=== PATIENT | female | born 2000 | race Hispanic/Latino ===

== ENCOUNTER 2022-01-07 16:03 | Observation (INO) | payer MEDICAID ==
[~2022-01-07] VITALS: Ht 167.6 cm; Wt 117.9 kg
[2022-01-07 16:06] VITALS: BP 125/80
== END 2022-01-07 17:47 | disposition home or self-care (01) ==
LOC: EDH 16:03 → LDH 16:04
PROVIDERS: ADMIT Obstetrics & Gynecology; ATTEND Obstetrics & Gynecology
DX: O62.9 Abnormality of forces of labor, unspecified (principal); Z3A.39 39 weeks gestation of pregnancy
CPT/HCPCS: G0379; G0378

== ENCOUNTER 2022-01-12 21:01 | Inpatient (IN) | payer MEDICAID ==
[~2022-01-12] VITALS: Ht 167.6 cm; Wt 100.2 kg
[2022-01-12] MEDS ORDERED: LACTATED RINGERS 1000ML 1,000 ML IV PRN (21:30)
[2022-01-12] MEDS ORDERED: PROMETHAZINE HCL 25 MG/ML 1ML AMPULE IM PRN (21:30)
[2022-01-12] MEDS ORDERED: MEPERIDINE-PF 50 MG/ML SYG IVP PRN (21:30)
[2022-01-12] MEDS ORDERED: NALOXONE HCL 0.4 MG/1 ML ML IV PRN (21:30)
[2022-01-12] MEDS ORDERED: ROPIVACAINE 0.2% 100ML VIAL 100 ML EP SCH (21:30)
[2022-01-12] MEDS ORDERED: LACTATED RINGERS 500 ML 500 ML IV PRN (21:30)
[2022-01-12] MEDS ORDERED: EPHEDRINE SULFATE 50 MG/ML AMPULE IVP PRN (21:30)
[2022-01-12 21:54] LABS: APPEARANCE,URINE CLEAR (CLEAR); BILIRUBIN,URINE NEGATIVE (NEGATIVE); COLOR,URINE YELLOW (YELLOW); GLUCOSE, URINE (UA) NEGATIVE (NEGATIVE); KETONES,URINE NEGATIVE (NEGATIVE); LEUKOCYTE ESTERASE ,URINE SMALL (NEGATIVE); NITRATE,URINE NEGATIVE (NEGATIVE); OCCULT BLOOD,URINE NEGATIVE (NEGATIVE); PROTEIN,URINE NEGATIVE (NEGATIVE); UROBILINOGEN,URINE 0.2 mg/dL (0.2-1.0)
[2022-01-12 22:00] LABS: BACTERIA,URINE Few /HPF (None Seen); RBC,URINE 0-1 /HPF (0-1); SQUAMOUS EPITHELIAL CELL,UR Few /HPF (0-2)
[2022-01-12 22:01] LABS: AMPHET/METH SCREEN,URINE NEGATIVE (NEGATIVE); BARBITURATE SCREEN, URINE NEGATIVE (NEGATIVE); BENZODIAZEPINES SCREEN,URINE NEGATIVE (NEGATIVE); CANNABINOID SCREEN,URINE NEGATIVE (NEGATIVE); COCAINE SCREEN,URINE NEGATIVE (NEGATIVE); PHENCYCLIDINE SCREEN,URINE NEGATIVE (NEGATIVE)
[2022-01-12 22:12] LABS: HEMATOCRIT 31.9 % (36-48); MEAN CORPUSCULAR HEMOGLOBIN 28.5 pg (27.0-33.0); MEAN CORPUSCULAR HGB CONC 32.9 g/dL (32.0-36.0); MEAN CORPUSCULAR VOLUME 86.4 fL (80-100); RED BLOOD CELL COUNT(AUTO) 3.69 MIL/uL (4.00-5.50); WHITE BLOOD COUNT (AUTO) 12.8 K/uL (4.8-10.8)
[2022-01-12 22:53] VITALS: BP 121/73
[2022-01-13] MEDS: OXYTOCIN-LR 20 UNITS/1000 ML 1,000 ML IV SCH ×2 (04:32→19:06)
[2022-01-13 08:40] LABS: RAPID PLASMA REAGIN NONREACTIVE (NONREACTIVE)
[2022-01-13] MEDS ORDERED: ACETAMINOPHEN 325 MG TAB PO PRN (18:30)
[2022-01-13] MEDS ORDERED: MEASLES/MUMPS/RUBELLA VACCINE, LIVE 0.5 ML/VIAL SQ PRN (18:30)
[2022-01-13] MEDS ORDERED: LANOLIN 30GM OINTMENT TP PRN (18:30)
[2022-01-13] MEDS ORDERED: WITCH HAZEL 1 PAD TP PRN (18:30)
[2022-01-13] MEDS ORDERED: BENZOCAINE/LANOLIN/ALOE VERA 60 ML AEROSOL TP PRN (18:30)
[2022-01-13] MEDS ORDERED: DIPH,PERTUSS(ACELL),TET VAC/PF 0.5 ML VIAL IM PRN (18:30)
[2022-01-13] MEDS: IBUPROFEN 600 MG TABLET PO PRN (20:21)
[2022-01-13 20:37] VITALS: BP 130/73
[2022-01-13] MEDS: DOCUSATE SODIUM 100 MG CAP PO SCH (20:57)
[2022-01-13 23:33] VITALS: BP 119/67
[2022-01-14 03:20] VITALS: BP 118/56
[2022-01-14] MEDS: IBUPROFEN 600 MG TABLET PO PRN (04:25)
[2022-01-14 06:42] LABS: HEMATOCRIT 29.9 % (36-48); MEAN CORPUSCULAR HEMOGLOBIN 28.7 pg (27.0-33.0); MEAN CORPUSCULAR HGB CONC 33.4 g/dL (32.0-36.0); MEAN CORPUSCULAR VOLUME 85.9 fL (80-100); RED BLOOD CELL COUNT(AUTO) 3.48 MIL/uL (4.00-5.50); RED CELL DISTRIBUTION WIDTH 14.3 % (11.0-15.5); WHITE BLOOD COUNT (AUTO) 20.6 K/uL (4.8-10.8)
[2022-01-14 08:10] VITALS: BP 120/68
[2022-01-14] MEDS: DOCUSATE SODIUM 100 MG CAP PO SCH (08:53)
[2022-01-14 12:00] VITALS: BP 117/73
[2022-01-14] MEDS ORDERED: IBUP-2077 PO (15:11)
[2022-01-14 15:36] VITALS: BP 114/72
[2022-01-15 17:09] LABS: OPIATES SCREEN URINE Negative ng/mL (Cutoff=300)
== END 2022-01-14 19:00 | disposition home or self-care (01) | DRG 560 ==
LOC: LDH 21:01 → WSH 01-13 20:41
PROVIDERS: ADMIT Obstetrics & Gynecology; ATTEND Obstetrics & Gynecology
PROC: 10E0XZZ Delivery of Products of Conception, External Approach (ICD-10-PCS; principal; 2022-01-14)
PROC: 0UQMXZZ Repair Vulva, External Approach (ICD-10-PCS; 2022-01-14)
DX: O80 Encounter for full-term uncomplicated delivery (principal); Z37.0 Single live birth; Z3A.39 39 weeks gestation of pregnancy; O71.4 Obstetric high vaginal laceration alone
CPT/HCPCS: 36415; 80305; 81001; 85027; 86592; 86701; 86850; 86900; 86901; 87390; A4314; G0378; J2550; J2590; J2795; J7120

== ENCOUNTER 2022-05-10 07:01 | Emergency (ER) | payer MEDICAID ==
[~2022-05-10] VITALS: Ht 167.6 cm; Wt 88.5 kg
[~2022-05-10 07:01] MED LIST: IBUP-2077 PO
[2022-05-10 07:28] LABS: BASOPHILS % (AUTO) 0.4 % (0.0-5.0); EOSINOPHILS % (AUTO) 1.2 % (0.0-8.0); HEMATOCRIT 38.2 % (36-48); LYMPHOCYTES % (AUTO) 30.1 % (21.0-51.0); MEAN CORPUSCULAR HEMOGLOBIN 28.1 pg (27.0-33.0); MEAN CORPUSCULAR VOLUME 82.7 fL (80-100); MONOCYTES % (AUTO) 7.8 % (3.0-13.0); NEUTROPHILS % (AUTO) 60.3 % (40.0-77.0); PLATELET COUNT (AUTO) 305 K/uL (130-400); RED BLOOD CELL COUNT(AUTO) 4.62 MIL/uL (4.00-5.50); RED CELL DISTRIBUTION WIDTH 13.4 % (11.0-15.5); WHITE BLOOD COUNT (AUTO) 10.6 K/uL (4.8-10.8)
[2022-05-10 07:48] LABS: ALBUMIN 3.8 g/dL (3.5-5.0); CREATININE 0.9 mg/dL (0.5-1.5); POTASSIUM 3.7 mmol/L (3.5-5.1); TOTAL PROTEIN, SERUM 7.7 g/dL (6.0-8.3)
[2022-05-10] MEDS ORDERED: FAMOTIDINE 20MG VIAL IV ONE (08:00)
[2022-05-10] MEDS ORDERED: PROCHLORPERAZINE 10MG/2ML INJ IV ONE (08:00)
[2022-05-10] MEDS ORDERED: DiphenhydrAMINE HCL 50 MG/ML VIAL IV ONE (08:00)
[2022-05-10 08:16] LABS: APPEARANCE,URINE CLOUDY (CLEAR); BILIRUBIN,URINE NEGATIVE (NEGATIVE); COLOR,URINE LIGHT-YELLOW (YELLOW); GLUCOSE, URINE (UA) NEGATIVE (NEGATIVE); KETONES,URINE NEGATIVE (NEGATIVE); LEUKOCYTE ESTERASE ,URINE 75 Leu/uL (NEGATIVE); NITRATE,URINE NEGATIVE (NEGATIVE); OCCULT BLOOD,URINE LARGE (NEGATIVE); PROTEIN,URINE 20 mg/dL (NEGATIVE); UROBILINOGEN,URINE 0.2 mg/dL (0.2-1.0)
[2022-05-10 08:19] LABS: HCG,QUALITATIVE URINE NEGATIVE (NEGATIVE)
[2022-05-10 08:22] LABS: BACTERIA,URINE FEW /HPF (None Seen); MUCUS,URINE RARE LPF (None Seen); SQUAMOUS EPITHELIAL CELL,UR MOD /HPF (0-2)
[2022-05-10] MEDS ORDERED: FAMO-136 PO (11:04)
[2022-05-10] MEDS ORDERED: PROC5TAB54 PO (11:04)
[2022-05-10 11:26] VITALS: BP 112/61
== END 2022-05-10 11:26 | disposition home or self-care (01) ==
LOC: EDH 07:01
DX: K29.00 Acute gastritis without bleeding (principal); K80.50 Calculus of bile duct without cholangitis or cholecystitis without obstruction; Z79.1 Long term (current) use of non-steroidal anti-inflammatories (NSAID); Z79.899 Other long term (current) drug therapy
CPT/HCPCS: 99284; 96374; 96375; 80053; 83690; 85025; 87088; 81001; 81025; 36415; J1200; J0780; S0028; J3490